=== PATIENT | female | born 1995 | race Caucasian/White ===

== ENCOUNTER 2016-12-17 02:02 | Emergency (ER) | payer BC, OTHER ==
[2016-12-17] MEDS ORDERED: Azithromycin TAB* 250 MG PO ONE (03:04)
[2016-12-17 03:25] VITALS: BP 126/84
--- NOTE | 2016-12-17 03:48 | ED ---
Sara Gentile Rebecca, scribed for Leonardo Bernardo on 12/17/16 at 0230 . HPI Chest Pain - HPI Summary HPI Summary: Pt is a 21 y/o F who presents to ED c/o chest tightness. Sx began tonight at approximately 2200 while trying to go to bed. Pain is currently moderate, ranked 4/10. Sx aggravated and alleviated by nothing. Additionally c/o SOB and productive cough. Is not on oral contraceptives and does not typically experience SOB with exertion. - History of Current Complaint Chief Complaint: EDChestPainROMI Time Seen by Provider: 12/17/16 02:17 Hx Obtained From: Patient Onset/Duration: Started Hours Ago, Still Present Time of Onset: 22:00 Current Severity: Moderate Pain Intensity: 4 Pain Scale Used: 0-10 Numeric Character: Tightness Aggravating Factor(s): Nothing Alleviating Factor(s): Nothing Associated Signs and Symptoms: Positive: Shortness of Breath, Productive Cough - Allergy/Home Medications Allergies/Adverse Reactions: Allergies Allergy/AdvReac Type Severity Reaction Status Date / Time Coconut Flavor Allergy Rash Verified 12/17/16 02:07 PMH/Surg Hx/FS Hx/Imm Hx Endocrine/Hematology History: Denies: Hx Diabetes Respiratory History: Denies: Hx Asthma Psychiatric History: Reports: Hx Anxiety, Hx Eating Disorder - [place] , Hx Depression, Hx Community Mental Health Tx - [facility] [place] Denies: Hx of Violent Episodes Against Others Infectious Disease History: No Infectious Disease History: Denies: Traveled Outside the [place] in Last 30 Days - Family History Known Family History: Positive: Other - Anxiety (mother) - Social History Alcohol Use: Weekly Alcohol Amount: 3-4 drinks, 3X/week Hx Substance Use: No Substance Use Type: Reports: None Hx Tobacco Use: No Smoking Status (MU): Never Smoked Tobacco Review of Systems Positive: Chest Pain - tightness Positive: Shortness Of Breath, Cough - productive All Other Systems Reviewed And Are Negative: Yes Physical Exam - Summary Physical Exam Summary: Appearance: Well appearing, no pain distress Skin: warm, dry, reflects adequate perfusion Head/face: normal Eyes: EOMI, NELA ENT: normal Neck: supple, nontender Respiratory: CTA, breath sounds present Cardiovascular: RRR, pulses symmetrical Abdomen: nontender, soft Bowel: present Musculoskeletal: normal, strength/ROM intact Neuro: normal, sensory motor intact, A&Ox3 Triage Information Reviewed: Yes Vital Signs On Initial Exam: Initial Vitals Temp Pulse Resp BP Pulse Ox 97.9 F 75 16 125/98 100 12/17/16 02:03 12/17/16 02:03 12/17/16 02:03 12/17/16 02:03 12/17/16 02:03 Vital Signs Reviewed: Yes - Trout Coma Scale Coma Scale Total: 15 Diagnostics - Vital Signs Vital Signs Temp Pulse Resp BP Pulse Ox 12/17/16 02:03 97.9 F 75 16 125/98 100 - Laboratory Lab Statement: Any lab studies that have been ordered have been reviewed, and results considered in the medical decision making process. - Radiology CXR Xray Interpretation: No Acute Changes Radiology Interpretation Completed By: ED Physician Re-Evaluation - Re-Evaluation First Eval Re-Evaluation Time: 03:10 Change: Improved Comment: Discussed results with pt who is feeling slightly improved. Chest Pain Course/Dx - Course Assessment/Plan: Pt is a 21 y/o F who presents to ED c/o chest tightness. Sx began tonight at approximately 2200 while trying to go to bed. Pain is currently moderate, ranked 4/10. Sx aggravated and alleviated by nothing. Additionally c/o SOB and productive cough. Is not on oral contraceptives and does not typically experience SOB with exertion. CXR reveals no acute findings , as read by ED physician. In the ED course pt received Zithromax. Likely bronchtiis due to mycoplasma. Pt will be D/C to home with Dx of bronchitis with Rx for Zithromax and a follow up with her PCP. She understands and agrees. - Chest Pain Differential Diagnosis/HQI/PQRI: Lower Respiratory Infection - pneumonia - Diagnoses Provider Diagnoses: Bronchitis Discharge - Discharge Plan Condition: Stable Disposition: HOME Prescriptions: Azithromycin TAB* [Zithromax TAB (Z-ARIADNA) 250 mg #6 tabs] 250 mg PO DAILY #4 tab Patient Education Materials: Acute Bronchitis (ED) Referrals: Ranjeet Jacinto [Primary Care Provider] - 3 Days The documentation as recorded by the Sara raygoza Rebecca accurately reflects the service I personally performed and the decisions made by , Leonardo Bernardo.
--- NOTE | 2016-12-17 08:16 | RAD ---
HISTORY: Cough and congestion COMPARISONS: None VIEWS: 4: Frontal dual-energy and lateral views of the chest. FINDINGS: CARDIOMEDIASTINAL SILHOUETTE: The cardiomediastinal silhouette is normal. LUCHO: The lucho are normal. PLEURA: The costophrenic angles are sharp. No pleural abnormalities are noted. LUNG PARENCHYMA: The lungs are clear. ABDOMEN: The upper abdomen is clear. There is no subphrenic gas. BONES AND SOFT TISSUES: No bone or soft tissue abnormalities are noted. OTHER: None. IMPRESSION: NO ACTIVE CARDIOPULMONARY DISEASE.
== END 2016-12-17 03:31 | disposition home or self-care (01) ==
LOC: ED 02:02
DX: R06.02 Shortness of breath (principal); R05 Cough; J40 Bronchitis, not specified as acute or chronic
CPT/HCPCS: 71020; 99282; A9270-GY